=== PATIENT | male | born 1945 | race Caucasian/White ===

== ENCOUNTER 2017-09-15 17:42 | Inpatient (IN) | payer MEDICARE ==
[~2017-09-15] VITALS: Ht 180.3 cm; Wt 88.0 kg
[~2017-09-15 17:42] MED LIST: CHOL100046 PO; CYAN1TAB41; DIGO125T PO; GABA-532 PO; LOSA25TA96 PO; POLY119P2 PO; SYN0.088T PO; VERA240T PO; WARF2TAB7 PO; WARF4TAB7 PO
[2017-09-15 18:12] LABS: BASOPHILS % (AUTO) 0.3 % (0-1); EOSINOPHILS # (AUTO) 0.3 X10'3 (0-0.9); EOSINOPHILS % (AUTO) 2.8 % (0-6); HEMATOCRIT 42.2 % (42.0-52.0); HEMOGLOBIN 14.1 g/dl (14.0-17.9); LYMPHOCYTES # (AUTO) 2.2 X10'3 (1.1-4.8); LYMPHOCYTES % (AUTO) 23.7 % (21-51); MEAN CORPUSCULAR HEMOGLOBIN 32.1 PG (27.0-31.0); MEAN CORPUSCULAR HGB CONC 33.4 % (33.0-36.5); MEAN CORPUSCULAR VOLUME 96.3 FL (78-98); MEAN PLATELET VOLUME 7.6 FL (7.4-10.4); MONOCYTES # (AUTO) 0.8 X10'3 (0-0.9); MONOCYTES % (AUTO) 8.8 % (2-12); NEUTROPHILS % (AUTO) 64.4 % (42-75); PLATELET COUNT 242 X10'3 (140-440); RED BLOOD COUNT 4.39 X10'6 (4.70-6.10); RED CELL DISTRIBUTION WIDTH 13.6 % (11.5-14.5); WHITE BLOOD COUNT 9.3 X10'3 (4.5-11.0)
[2017-09-15 18:28] LABS: ALANINE AMINOTRANSFERASE 29 U/L (12-78); ALBUMIN 3.3 G/DL (3.4-5.0); ALBUMIN/GLOBULIN RATIO 0.9 (1.1-1.5); ALKALINE PHOSPHATASE 92 IU/L (46-116); ANION GAP 7 (8-16); ASPARTATE AMINO TRANSFERASE 19 U/L (10-37); BILIRUBIN,TOTAL 0.5 MG/DL (0.1-1.0); BLOOD UREA NITROGEN 17 MG/DL (7-18); BUN/CREATININE RATIO 19.8 (5.4-32.0); CALCIUM 8.8 MG/DL (8.5-10.1); CHLORIDE 107 MMOL/L (99-107); CREATININE 0.86 MG/DL (0.60-1.10); GLUCOSE 99 MG/DL (70-104); MAGNESIUM 1.8 MG/DL (1.5-2.4); POTASSIUM 4.4 MMOL/L (3.5-5.1); SODIUM 143 MMOL/L (135-145); TOTAL CARBON DIOXIDE 29.1 MMOL/L (24-32); TOTAL PROTEIN 7.1 G/DL (6.4-8.2); eGFR 88 ML/MIN
[2017-09-15] MEDS ORDERED: VENL75CA55 PO (18:47)
[2017-09-15 19:00] LABS: INR 2.5 INR; PROTHROMBIN TIME 24.6 SECONDS (9.0-12.0)
[2017-09-15] MEDS ORDERED: phytonadione inj. 5 MG in normal saline 100ml IV soln 99.5 ML IV ONE ×2 (19:15→19:45)
[2017-09-15] MEDS ORDERED: LORazepam 2 mg/ml vial IV ONE (20:05)
[2017-09-15] MEDS ORDERED: temazepam 15mg capsule PO PRN (21:00)
[2017-09-15] MEDS ORDERED: acetaminophen 325mg tablet PO PRN (22:00)
[2017-09-15] MEDS ORDERED: acetaminophen 650mg rectal suppository RC PRN (22:00)
[2017-09-15] MEDS ORDERED: mag hydrox/Alum hydrox/simeth 30ml oral suspension PO PRN (22:00)
[2017-09-15] MEDS ORDERED: bisacodyl 10mg suppository rectal RC PRN (22:00)
[2017-09-15] MEDS ORDERED: magnesium hydroxide 30ml (MOM) UD suspension PO PRN (22:00)
[2017-09-15] MEDS ORDERED: diphenhydrAMINE 50 mg/ml inj IV PRN (22:00)
[2017-09-15] MEDS ORDERED: HYDROcodone/acetaminophen 5mg/325mg tablet PO PRN (22:00)
[2017-09-15] MEDS ORDERED: diphenhydrAMINE 25mg capsule PO PRN (22:00)
[2017-09-15] MEDS ORDERED: ondansetron/PF 4mg/2ml inj IV PRN (22:00)
[2017-09-15] MEDS ORDERED: metoclopramide 5 mg/ml inj IV PRN (22:00)
[2017-09-15] MEDS ORDERED: HYDROmorphone 1 mg/ml syringe IV PRN ×2 (22:00)
[2017-09-15] MEDS: HYDROcodone/acetaminophen 10/325mg tab PO PRN (22:27)
[2017-09-15] MEDS ORDERED: fentaNYL/PF 50MCG/1 ML 2ML syringe IV PRN (22:30)
[2017-09-15] MEDS: pantoprazole 40 MG vial IV SCH (22:40)
[2017-09-15 23:30] VITALS: BP 130/84
[2017-09-15] MEDS: normal saline 1000ml 1,000 ML IV SCH (23:41)
[2017-09-15] MEDS ORDERED: HYDROmorphone inj. 0.5 MG/0.5 ML DISP.SYRIN IV PRN (23:55)
[2017-09-16] VITALS (13 sets, daily range): BP systolic 109–157; BP diastolic 67–86
[2017-09-16] MEDS: HYDROmorphone inj. 0.5 MG/0.5 ML DISP.SYRIN IV PRN ×5 (00:04→19:10)
[2017-09-16 07:07] LABS: BASOPHILS % (AUTO) 0.4 % (0-1); EOSINOPHILS # (AUTO) 0.2 X10'3 (0-0.9); EOSINOPHILS % (AUTO) 2.3 % (0-6); HEMATOCRIT 39.4 % (42.0-52.0); HEMOGLOBIN 13.2 g/dl (14.0-17.9); LYMPHOCYTES # (AUTO) 2.3 X10'3 (1.1-4.8); LYMPHOCYTES % (AUTO) 21.8 % (21-51); MEAN CORPUSCULAR HEMOGLOBIN 31.9 PG (27.0-31.0); MEAN CORPUSCULAR HGB CONC 33.6 % (33.0-36.5); MEAN PLATELET VOLUME 7.7 FL (7.4-10.4); MONOCYTES # (AUTO) 1.1 X10'3 (0-0.9); MONOCYTES % (AUTO) 10.4 % (2-12); NEUTROPHILS # (AUTO) 6.8 X10'3 (1.8-7.7); NEUTROPHILS % (AUTO) 65.1 % (42-75); PLATELET COUNT 220 X10'3 (140-440); RED BLOOD COUNT 4.15 X10'6 (4.70-6.10); RED CELL DISTRIBUTION WIDTH 14.1 % (11.5-14.5); WHITE BLOOD COUNT 10.4 X10'3 (4.5-11.0)
[2017-09-16 07:17] LABS: INR 1.3 INR; PARTIAL THROMBOPLASTIN TIME 33 SECONDS (22-32); PROTHROMBIN TIME 13.4 SECONDS (9.0-12.0)
[2017-09-16 07:25] LABS: ALANINE AMINOTRANSFERASE 32 U/L (12-78); ALBUMIN/GLOBULIN RATIO 0.9 (1.1-1.5); ALKALINE PHOSPHATASE 74 IU/L (46-116); ANION GAP 7 (8-16); ASPARTATE AMINO TRANSFERASE 18 U/L (10-37); BILIRUBIN,TOTAL 0.7 MG/DL (0.1-1.0); BLOOD UREA NITROGEN 15 MG/DL (7-18); BUN/CREATININE RATIO 19.5 (5.4-32.0); CALCIUM 8.2 MG/DL (8.5-10.1); CHLORIDE 108 MMOL/L (99-107); CREATININE 0.77 MG/DL (0.60-1.10); GLUCOSE 98 MG/DL (70-104); POTASSIUM 4.1 MMOL/L (3.5-5.1); SODIUM 142 MMOL/L (135-145); TOTAL CARBON DIOXIDE 27.1 MMOL/L (24-32); TOTAL PROTEIN 6.5 G/DL (6.4-8.2); eGFR > 90 ML/MIN
[2017-09-16] MEDS ORDERED: CYCL-1 PO (07:33)
[2017-09-16] MEDS: docusate sod 100mg capsule PO SCH ×2 (07:41→20:00)
[2017-09-16] MEDS: levoTHYROXINE 88mcg tablet PO SCH (07:51)
[2017-09-16] MEDS: losartan 50mg tablet PO SCH (07:51)
[2017-09-16] MEDS: pantoprazole 40 MG vial IV SCH (07:51)
[2017-09-16] MEDS: venlafaxine XR 75mg capsule (Q24H) PO SCH (07:51)
[2017-09-16] MEDS: digoxin 125mcg (0.125mg) tablet PO SCH (07:51)
[2017-09-16] MEDS: verapamil SR 120mg (sust. release) tab PO SCH ×2 (07:52→20:00)
[2017-09-16] MEDS: HYDROcodone/acetaminophen 10/325mg tab PO PRN ×3 (07:58→17:30)
[2017-09-16] MEDS ORDERED: benzocaine/menthol oral lozeng 1 EACH BOX MM PRN (08:05)
[2017-09-16] MEDS ORDERED: clindamycin-Cleocin 900mg/D5W 50 ML IV ONE (17:00)
[2017-09-16] MEDS ORDERED: sevoflurane 250ml liquid IH ONE (20:04)
[2017-09-16] MEDS ORDERED: fentaNYL/PF 50MCG/1 ML 2ML syringe ONE (20:09)
[2017-09-16] MEDS ORDERED: propofol inj 20 ML IV ONE (20:09)
[2017-09-16] MEDS ORDERED: ringers solution, lacted 1,000 ML IV SCH (21:26)
[2017-09-16] MEDS ORDERED: proCHLORperazine 10 MG/2 ml inj IV PRN (21:30)
[2017-09-16] MEDS ORDERED: ondansetron/PF 4mg/2ml inj IV PRN (21:30)
[2017-09-16] MEDS ORDERED: meperidine/PF 25mg/ml syringe IV PRN ×3 (21:30)
[2017-09-16] MEDS ORDERED: phenylephrine 10mg/ml inj IV ONE (21:52)
[2017-09-16] MEDS: normal saline 1000ml 1,000 ML IV SCH (23:59)
[2017-09-16] MEDS: clindamycin-Cleocin 900mg/D5W 50 ML IV SCH (23:59)
[2017-09-17] VITALS (31 sets, daily range): BP systolic 109–166; BP diastolic 53–91
[2017-09-17 06:35] LABS: BASOPHILS % (AUTO) 0.3 % (0-1); EOSINOPHILS # (AUTO) 0.4 X10'3 (0-0.9); EOSINOPHILS % (AUTO) 3.5 % (0-6); HEMATOCRIT 36.3 % (42.0-52.0); HEMOGLOBIN 12.3 g/dl (14.0-17.9); LYMPHOCYTES # (AUTO) 1.2 X10'3 (1.1-4.8); LYMPHOCYTES % (AUTO) 10.6 % (21-51); MEAN CORPUSCULAR HEMOGLOBIN 32.4 PG (27.0-31.0); MEAN CORPUSCULAR HGB CONC 33.8 % (33.0-36.5); MEAN CORPUSCULAR VOLUME 95.8 FL (78-98); MEAN PLATELET VOLUME 7.5 FL (7.4-10.4); MONOCYTES % (AUTO) 8.8 % (2-12); NEUTROPHILS # (AUTO) 8.8 X10'3 (1.8-7.7); NEUTROPHILS % (AUTO) 76.8 % (42-75); PLATELET COUNT 198 X10'3 (140-440); RED BLOOD COUNT 3.79 X10'6 (4.70-6.10); RED CELL DISTRIBUTION WIDTH 13.7 % (11.5-14.5); WHITE BLOOD COUNT 11.5 X10'3 (4.5-11.0)
[2017-09-17 06:57] LABS: ALANINE AMINOTRANSFERASE 29 U/L (12-78); ALBUMIN 2.9 G/DL (3.4-5.0); ALBUMIN/GLOBULIN RATIO 0.8 (1.1-1.5); ALKALINE PHOSPHATASE 67 IU/L (46-116); ANION GAP 7 (8-16); ASPARTATE AMINO TRANSFERASE 25 U/L (10-37); BLOOD UREA NITROGEN 12 MG/DL (7-18); BUN/CREATININE RATIO 15.2 (5.4-32.0); CALCIUM 8.3 MG/DL (8.5-10.1); CHLORIDE 105 MMOL/L (99-107); CREATININE 0.79 MG/DL (0.60-1.10); GLUCOSE 92 MG/DL (70-104); POTASSIUM 4.2 MMOL/L (3.5-5.1); SODIUM 140 MMOL/L (135-145); TOTAL CARBON DIOXIDE 28.5 MMOL/L (24-32); TOTAL PROTEIN 6.4 G/DL (6.4-8.2); eGFR > 90 ML/MIN
[2017-09-17] MEDS: levoTHYROXINE 88mcg tablet PO SCH (07:00)
[2017-09-17] MEDS: clindamycin-Cleocin 900mg/D5W 50 ML IV SCH ×3 (07:28→23:46)
[2017-09-17] MEDS: pantoprazole 40 MG vial IV SCH (07:32)
[2017-09-17] MEDS: venlafaxine XR 75mg capsule (Q24H) PO SCH (07:33)
[2017-09-17] MEDS: fluticasone nasal spray 16GM bottle NS SCH (07:33)
[2017-09-17] MEDS: verapamil SR 120mg (sust. release) tab PO SCH ×2 (07:33→18:51)
[2017-09-17] MEDS: docusate sod 100mg capsule PO SCH ×2 (07:33→19:51)
[2017-09-17] MEDS: losartan 50mg tablet PO SCH (07:34)
[2017-09-17] MEDS: digoxin 125mcg (0.125mg) tablet PO SCH ×2 (07:34→17:27)
[2017-09-17] MEDS ORDERED: propofol inj 20 ML IV ONE (07:44)
[2017-09-17] MEDS ORDERED: fentaNYL/PF 50MCG/1 ML 2ML syringe ONE (07:44)
[2017-09-17] MEDS ORDERED: ePHEDrine 50MG/ML INJ. ONE (07:57)
[2017-09-17] MEDS ORDERED: non-formulary drug (Warfarin Sodium 1 TABLET) PO SCH (08:55)
[2017-09-17] MEDS: normal saline 1000ml 1,000 ML IV SCH (10:28)
[2017-09-17] MEDS: acetaminophen 325mg tablet PO PRN (17:50)
[2017-09-17] MEDS ORDERED: diltiazem 5mg/ml 5ml inj. IV ONE (22:15)
[2017-09-18 02:00] VITALS: BP 108/63
[2017-09-18] MEDS: normal saline 1000ml 1,000 ML IV SCH ×2 (04:09→16:25)
[2017-09-18] MEDS: acetaminophen 325mg tablet PO PRN (05:25)
[2017-09-18 06:00] VITALS: BP 105/56
[2017-09-18 06:38] LABS: BASOPHILS % (AUTO) 0.1 % (0-1); EOSINOPHILS # (AUTO) 0.3 X10'3 (0-0.9); EOSINOPHILS % (AUTO) 2.9 % (0-6); HEMATOCRIT 32.7 % (42.0-52.0); HEMOGLOBIN 10.8 g/dl (14.0-17.9); LYMPHOCYTES # (AUTO) 1.2 X10'3 (1.1-4.8); LYMPHOCYTES % (AUTO) 13.9 % (21-51); MEAN CORPUSCULAR HEMOGLOBIN 31.4 PG (27.0-31.0); MEAN CORPUSCULAR VOLUME 95.2 FL (78-98); MEAN PLATELET VOLUME 7.6 FL (7.4-10.4); MONOCYTES # (AUTO) 1.1 X10'3 (0-0.9); MONOCYTES % (AUTO) 13.4 % (2-12); NEUTROPHILS % (AUTO) 69.7 % (42-75); PLATELET COUNT 172 X10'3 (140-440); RED BLOOD COUNT 3.44 X10'6 (4.70-6.10); RED CELL DISTRIBUTION WIDTH 14.2 % (11.5-14.5); WHITE BLOOD COUNT 8.6 X10'3 (4.5-11.0)
[2017-09-18 06:44] LABS: INR 1.1 INR; PROTHROMBIN TIME 11.1 SECONDS (9.0-12.0)
[2017-09-18 06:55] LABS: ALANINE AMINOTRANSFERASE 20 U/L (12-78); ALBUMIN 2.5 G/DL (3.4-5.0); ALBUMIN/GLOBULIN RATIO 0.7 (1.1-1.5); ALKALINE PHOSPHATASE 60 IU/L (46-116); ANION GAP 9 (8-16); ASPARTATE AMINO TRANSFERASE 19 U/L (10-37); BILIRUBIN,TOTAL 1.1 MG/DL (0.1-1.0); BLOOD UREA NITROGEN 12 MG/DL (7-18); BUN/CREATININE RATIO 16.9 (5.4-32.0); CALCIUM 7.8 MG/DL (8.5-10.1); CHLORIDE 106 MMOL/L (99-107); CREATININE 0.71 MG/DL (0.60-1.10); GLUCOSE 106 MG/DL (70-104); SODIUM 140 MMOL/L (135-145); TOTAL CARBON DIOXIDE 25.4 MMOL/L (24-32); TOTAL PROTEIN 6.1 G/DL (6.4-8.2); eGFR > 90 ML/MIN
[2017-09-18] MEDS: losartan 50mg tablet PO SCH (07:20)
[2017-09-18] MEDS: pantoprazole 40mg Tablet.DR PO SCH (07:32)
[2017-09-18] MEDS: venlafaxine XR 75mg capsule (Q24H) PO SCH (07:32)
[2017-09-18] MEDS: docusate sod 100mg capsule PO SCH ×2 (07:33→20:45)
[2017-09-18] MEDS: verapamil SR 120mg (sust. release) tab PO SCH ×2 (07:34→20:45)
[2017-09-18] MEDS: digoxin 125mcg (0.125mg) tablet PO SCH (07:34)
[2017-09-18] MEDS: levoTHYROXINE 88mcg tablet PO SCH (07:35)
[2017-09-18] MEDS: fluticasone nasal spray 16GM bottle NS SCH (07:36)
[2017-09-18 10:00] VITALS: BP 118/60
[2017-09-18] MEDS: HYDROcodone/acetaminophen 10/325mg tab PO PRN ×2 (12:14→16:24)
[2017-09-18] MEDS ORDERED: lactulose 20gm/30ml cup PO PRN (13:25)
[2017-09-18] MEDS ORDERED: lactulose 20gm/30ml cup PO ONE (13:25)
[2017-09-18 13:50] VITALS: BP 111/56
[2017-09-18 18:00] VITALS: BP 148/75
[2017-09-18] MEDS ORDERED: oxyCODONE/APAP 5-325mg tablet PO PRN (19:35)
[2017-09-18] MEDS: oxyCODONE/APAP 10/325mg tablet PO PRN (20:45)
[2017-09-18] MEDS ORDERED: warfarin 4mg tablet PO ONE ×2 (21:00)
[2017-09-18 22:00] VITALS: BP 128/83
[2017-09-19 02:00] VITALS: BP 127/75
[2017-09-19 05:24] LABS: BASOPHILS % (AUTO) 0.1 % (0-1); EOSINOPHILS # (AUTO) 0.3 X10'3 (0-0.9); EOSINOPHILS % (AUTO) 1.9 % (0-6); HEMATOCRIT 33.9 % (42.0-52.0); HEMOGLOBIN 11.4 g/dl (14.0-17.9); LYMPHOCYTES # (AUTO) 0.5 X10'3 (1.1-4.8); LYMPHOCYTES % (AUTO) 3.8 % (21-51); MEAN CORPUSCULAR HEMOGLOBIN 32.1 PG (27.0-31.0); MEAN CORPUSCULAR HGB CONC 33.5 % (33.0-36.5); MEAN CORPUSCULAR VOLUME 95.8 FL (78-98); MEAN PLATELET VOLUME 7.8 FL (7.4-10.4); MONOCYTES # (AUTO) 0.9 X10'3 (0-0.9); MONOCYTES % (AUTO) 6.3 % (2-12); NEUTROPHILS # (AUTO) 12.5 X10'3 (1.8-7.7); NEUTROPHILS % (AUTO) 87.9 % (42-75); PLATELET COUNT 199 X10'3 (140-440); RED BLOOD COUNT 3.54 X10'6 (4.70-6.10); WHITE BLOOD COUNT 14.3 X10'3 (4.5-11.0)
[2017-09-19 05:37] LABS: PROTHROMBIN TIME 10.7 SECONDS (9.0-12.0)
[2017-09-19 06:00] VITALS: BP 127/70
[2017-09-19 06:00] LABS: ALANINE AMINOTRANSFERASE 21 U/L (12-78); ALBUMIN 2.6 G/DL (3.4-5.0); ALBUMIN/GLOBULIN RATIO 0.6 (1.1-1.5); ALKALINE PHOSPHATASE 65 IU/L (46-116); ANION GAP 11 (8-16); ASPARTATE AMINO TRANSFERASE 19 U/L (10-37); BILIRUBIN,TOTAL 1.1 MG/DL (0.1-1.0); BLOOD UREA NITROGEN 12 MG/DL (7-18); BUN/CREATININE RATIO 16.9 (5.4-32.0); CALCIUM 8.2 MG/DL (8.5-10.1); CHLORIDE 107 MMOL/L (99-107); CREATININE 0.71 MG/DL (0.60-1.10); GLUCOSE 107 MG/DL (70-104); POTASSIUM 3.2 MMOL/L (3.5-5.1); SODIUM 142 MMOL/L (135-145); TOTAL CARBON DIOXIDE 23.9 MMOL/L (24-32); TOTAL PROTEIN 6.7 G/DL (6.4-8.2); eGFR > 90 ML/MIN
[2017-09-19] MEDS ORDERED: mineral oil 133ml enema RC PRN (06:05)
[2017-09-19] MEDS ORDERED: digoxin 250mcg/ml 2ml ampule IV ONE (07:20)
[2017-09-19] MEDS: levoTHYROXINE 88mcg tablet PO SCH (07:58)
[2017-09-19] MEDS: venlafaxine XR 75mg capsule (Q24H) PO SCH (07:58)
[2017-09-19] MEDS: docusate sod 100mg capsule PO SCH ×2 (07:58→20:23)
[2017-09-19] MEDS: digoxin 125mcg (0.125mg) tablet PO SCH (07:58)
[2017-09-19] MEDS: pantoprazole 40mg Tablet.DR PO SCH (07:58)
[2017-09-19] MEDS: losartan 50mg tablet PO SCH (07:58)
[2017-09-19] MEDS: verapamil SR 120mg (sust. release) tab PO SCH ×2 (07:58→20:23)
[2017-09-19] MEDS: sennosides/docusate sodium tablet PO SCH ×2 (07:58→20:23)
[2017-09-19] MEDS: fluticasone nasal spray 16GM bottle NS SCH (08:00)
[2017-09-19] MEDS: normal saline 1000ml 1,000 ML IV SCH ×2 (08:09→20:23)
[2017-09-19] MEDS ORDERED: potassium Cl 40MEQ/NS 500ml 500 ML IV PRN ×2 (08:45)
[2017-09-19] MEDS ORDERED: potassium Cl 20 mEq SR tablet PO PRN (08:45)
[2017-09-19] MEDS ORDERED: magnesium 4gm in 100ml NS 100 ML IV PRN (08:45)
[2017-09-19] MEDS ORDERED: magnesium 2GM in 50ml NS 50 ML IV PRN (08:45)
[2017-09-19] MEDS: potassium Cl 20 mEq SR tablet PO PRN ×2 (09:39→16:31)
[2017-09-19 11:00] VITALS: BP 140/86
[2017-09-19] MEDS: oxyCODONE/APAP 10/325mg tablet PO PRN (17:40)
[2017-09-19 18:00] VITALS: BP 135/68
[2017-09-19] MEDS ORDERED: polyethylene glycol 3350 17gm powd pack PO SCH (21:00)
[2017-09-19] MEDS ORDERED: warfarin 3mg tablet PO ONE (21:00)
[2017-09-19 22:00] VITALS: BP 124/80
[2017-09-20] MEDS: normal saline 1000ml 1,000 ML IV SCH (05:42)
[2017-09-20] MEDS: oxyCODONE/APAP 10/325mg tablet PO PRN (05:42)
[2017-09-20 06:00] VITALS: BP 122/69
[2017-09-20 07:02] LABS: BASOPHILS % (AUTO) 0.4 % (0-1); EOSINOPHILS # (AUTO) 0.5 X10'3 (0-0.9); EOSINOPHILS % (AUTO) 4.4 % (0-6); HEMATOCRIT 33.8 % (42.0-52.0); HEMOGLOBIN 11.5 g/dl (14.0-17.9); LYMPHOCYTES % (AUTO) 16.6 % (21-51); MEAN CORPUSCULAR HEMOGLOBIN 32.4 PG (27.0-31.0); MEAN CORPUSCULAR VOLUME 95.2 FL (78-98); MEAN PLATELET VOLUME 8.1 FL (7.4-10.4); MONOCYTES % (AUTO) 8.8 % (2-12); NEUTROPHILS # (AUTO) 8.2 X10'3 (1.8-7.7); NEUTROPHILS % (AUTO) 69.8 % (42-75); PLATELET COUNT 214 X10'3 (140-440); RED BLOOD COUNT 3.54 X10'6 (4.70-6.10); RED CELL DISTRIBUTION WIDTH 13.8 % (11.5-14.5); WHITE BLOOD COUNT 11.8 X10'3 (4.5-11.0)
[2017-09-20 07:11] LABS: PROTHROMBIN TIME 10.8 SECONDS (9.0-12.0)
[2017-09-20] MEDS: pantoprazole 40mg Tablet.DR PO SCH (07:32)
[2017-09-20] MEDS: venlafaxine XR 75mg capsule (Q24H) PO SCH (07:32)
[2017-09-20] MEDS: levoTHYROXINE 88mcg tablet PO SCH (07:32)
[2017-09-20] MEDS: verapamil SR 120mg (sust. release) tab PO SCH (07:32)
[2017-09-20] MEDS: sennosides/docusate sodium tablet PO SCH (07:32)
[2017-09-20] MEDS: losartan 50mg tablet PO SCH (07:33)
[2017-09-20] MEDS: docusate sod 100mg capsule PO SCH (07:33)
[2017-09-20 07:59] LABS: ALANINE AMINOTRANSFERASE 28 U/L (12-78); ALBUMIN 2.6 G/DL (3.4-5.0); ALBUMIN/GLOBULIN RATIO 0.6 (1.1-1.5); ALKALINE PHOSPHATASE 65 IU/L (46-116); ANION GAP 10 (8-16); ASPARTATE AMINO TRANSFERASE 24 U/L (10-37); BILIRUBIN,TOTAL 1.2 MG/DL (0.1-1.0); BLOOD UREA NITROGEN 13 MG/DL (7-18); BUN/CREATININE RATIO 16.7 (5.4-32.0); CALCIUM 8.6 MG/DL (8.5-10.1); CHLORIDE 106 MMOL/L (99-107); CREATININE 0.78 MG/DL (0.60-1.10); GLUCOSE 98 MG/DL (70-104); SODIUM 141 MMOL/L (135-145); TOTAL CARBON DIOXIDE 24.8 MMOL/L (24-32); eGFR > 90 ML/MIN
[2017-09-20] MEDS ORDERED: digoxin 125mcg (0.125mg) tablet PO SCH (08:00)
[2017-09-20] MEDS: fluticasone nasal spray 16GM bottle NS SCH (08:00)
[2017-09-20 10:34] VITALS: BP 128/72
[2017-09-20] MEDS ORDERED: DIGO125T5 PO (11:42)
[2017-09-20] MEDS ORDERED: warfarin 7.5mg tablet PO ONE (21:00)
== END 2017-09-20 16:30 | DRG 482 ==
LOC: ER 17:42 → ED HOLD 22:03 → ORTHO 4S 23:04 → PACU 09-16 19:19 → ORTHO 4S 09-16 22:44
PROVIDERS: ADMIT Family Medicine; ATTEND Family Medicine
PROC: 0QS706Z Reposition Left Upper Femur with Intramedullary Internal Fixation Device, Open Approach (ICD-10-PCS; principal; 2017-09-16 20:04)
PROC: 0QW704Z Revision of Internal Fixation Device in Left Upper Femur, Open Approach (ICD-10-PCS; 2017-09-17)
DX: S72.22XA Displaced subtrochanteric fracture of left femur, initial encounter for closed fracture (principal); I48.91 Unspecified atrial fibrillation; D64.9 Anemia, unspecified; M21.852 Other specified acquired deformities of left thigh; M54.9 Dorsalgia, unspecified; G89.29 Other chronic pain; E78.00 Pure hypercholesterolemia, unspecified; I10 Essential (primary) hypertension; E03.9 Hypothyroidism, unspecified; W18.39XA Other fall on same level, initial encounter; Z88.0 Allergy status to penicillin; Z88.2 Allergy status to sulfonamides; Z79.899 Other long term (current) drug therapy; Z79.01 Long term (current) use of anticoagulants; Z86.14 Personal history of Methicillin resistant Staphylococcus aureus infection; Y93.89 Activity, other specified; Y92.89 Other specified places as the place of occurrence of the external cause; Y99.8 Other external cause status
CPT/HCPCS: 27495; 36415; 71010; 71045; 73502; 73552; 76000; 76001; 80053; 80162; 83605; 83735; 83880; 84145; 84443; 85025; 85610; 85730; 87040; 87070; 93005; 93308; 96374; 96375; 97110; 97116; 97162; 97530; 99285; A4315; A6222; A6449; A7000; C1713; C9113; J1160; J1170; J2060; J2175; J2370; J2704; J3010; J3370; J3430; J3490; J7030; J7120

== ENCOUNTER 2018-01-04 10:19 | Inpatient (IN) | payer MEDICARE ==
[~2018-01-04] VITALS: Ht 175.3 cm; Wt 86.3 kg
[~2018-01-04 10:19] MED LIST changes: +CIPR-230 PO; +CYCL-1 PO; -DIGO125T PO; +DIGO125T5 PO; -GABA-532 PO; -POLY119P2 PO; +VENL75CA55 PO; +WARF-65 PO; -WARF2TAB7 PO; +WARF4TAB69 PO; -WARF4TAB7 PO
[2018-01-04] MEDS ORDERED: diltiazem 5mg/ml 5ml inj. IV ONE (10:45)
[2018-01-04 10:55] LABS: BASOPHILS % (AUTO) 0.3 % (0-1); EOSINOPHILS # (AUTO) 0.2 X10'3 (0-0.9); EOSINOPHILS % (AUTO) 2.5 % (0-6); HEMATOCRIT 40.1 % (42.0-52.0); HEMOGLOBIN 13.8 g/dl (14.0-17.9); LYMPHOCYTES # (AUTO) 1.9 X10'3 (1.1-4.8); LYMPHOCYTES % (AUTO) 21.9 % (21-51); MEAN CORPUSCULAR HEMOGLOBIN 30.8 PG (27.0-31.0); MEAN CORPUSCULAR HGB CONC 34.4 % (33.0-36.5); MEAN CORPUSCULAR VOLUME 89.6 FL (78-98); MEAN PLATELET VOLUME 7.7 FL (7.4-10.4); MONOCYTES # (AUTO) 0.8 X10'3 (0-0.9); MONOCYTES % (AUTO) 9.5 % (2-12); NEUTROPHILS # (AUTO) 5.7 X10'3 (1.8-7.7); NEUTROPHILS % (AUTO) 65.8 % (42-75); PLATELET COUNT 260 X10'3 (140-440); RED BLOOD COUNT 4.48 X10'6 (4.70-6.10); RED CELL DISTRIBUTION WIDTH 16.9 % (11.5-14.5); WHITE BLOOD COUNT 8.7 X10'3 (4.5-11.0)
[2018-01-04 11:07] LABS: PARTIAL THROMBOPLASTIN TIME 38 SECONDS (22-32); PROTHROMBIN TIME 20.4 SECONDS (9.0-12.0)
[2018-01-04 11:20] LABS: ALANINE AMINOTRANSFERASE 22 U/L (12-78); ALBUMIN 3.7 G/DL (3.4-5.0); ALBUMIN/GLOBULIN RATIO 0.8 (1.1-1.5); ALKALINE PHOSPHATASE 89 IU/L (46-116); ANION GAP 13 (8-16); ASPARTATE AMINO TRANSFERASE 19 U/L (10-37); BILIRUBIN,TOTAL 0.6 MG/DL (0.1-1.0); BLOOD UREA NITROGEN 18 MG/DL (7-18); BUN/CREATININE RATIO 16.8 (5.4-32.0); CALCIUM 9.4 MG/DL (8.5-10.1); CHLORIDE 103 MMOL/L (99-107); CREATININE 1.07 MG/DL (0.60-1.10); GLUCOSE 112 MG/DL (70-104); POTASSIUM 4.4 MMOL/L (3.5-5.1); SODIUM 141 MMOL/L (135-145); TOTAL PROTEIN 8.5 G/DL (6.4-8.2); eGFR 68 ML/MIN
[2018-01-04] MEDS ORDERED: verapamil 2.5 mg/ml inj IV ONE (11:20)
[2018-01-04] MEDS ORDERED: normal saline 1000ML IV soln IV ONE (11:30)
[2018-01-04] MEDS ORDERED: levoFLOXACIN-Levaquin 750MG/D5 150 ML IV ONE (11:30)
[2018-01-04] MEDS ORDERED: CefTRIAXone 2gm/D5W 50ml 50 ML IV ONE (11:30)
[2018-01-04 11:59] LABS: CLARITY,URINE SLIGHTLY CLOUDY (Clear); COLOR,URINE YELLOW (Yellow); GLUCOSE, URINE NEGATIVE (Neg); KETONES,URINE NEGATIVE (Neg); LEUKOCYTE ESTERASE ,URINE SMALL (Neg); NITRITES, URINE POSITIVE (Neg); OCCULT BLOOD,URINE NEGATIVE (Neg); PH,URINE 5.5 (4.8-8.0); PROTEIN,URINE NEGATIVE (Neg); UROBILINOGEN,URINE 0.2 E.U/dL (0.2-1.0)
[2018-01-04 12:00] LABS: UA COLLECTION TYPE URINAL
[2018-01-04 12:05] LABS: BACTERIA,URINE 2+ /HPF (Neg); HYALINE CASTS 0-3 /LPF (NEGATIVE); SQUAMOUS EPITHELIAL CELL,UR MODERATE /LPF (FEW)
[2018-01-04 12:06] LABS: TRANSITIONAL EPI CELLS,URINE MODERATE /HPF; WBC,URINE 30-50 /HPF (0-4)
[2018-01-04] MEDS: normal saline 1000ml 1,000 ML IV SCH ×5 (12:35→23:10)
[2018-01-04] MEDS ORDERED: digoxin 250mcg (0.25mg) tablet PO ONE (13:30)
[2018-01-04] MEDS ORDERED: magnesium hydroxide 30ml (MOM) UD suspension PO PRN (13:30)
[2018-01-04] MEDS ORDERED: ondansetron/PF 4mg/2ml inj IV PRN (13:30)
[2018-01-04] MEDS ORDERED: mag hydrox/Alum hydrox/simeth 30ml oral suspension PO PRN (13:30)
[2018-01-04 16:00] VITALS: BP 150/81
[2018-01-04 18:30] VITALS: BP 132/67
[2018-01-04] MEDS ORDERED: digoxin 250mcg/ml 2ml ampule IV ONE (21:15)
[2018-01-04] MEDS: verapamil SR 120mg (sust. release) tab PO SCH (21:25)
[2018-01-04] MEDS: carvedilol 6.25mg tablet PO SCH (21:25)
[2018-01-04 22:00] VITALS: BP 133/73
[2018-01-04] MEDS: acetaminophen 325mg tablet PO PRN (23:52)
[2018-01-05 02:00] VITALS: BP 131/75
[2018-01-05 05:35] LABS: BASOPHILS % (AUTO) 0.4 % (0-1); EOSINOPHILS # (AUTO) 0.4 X10'3 (0-0.9); HEMATOCRIT 37.2 % (42.0-52.0); HEMOGLOBIN 12.8 g/dl (14.0-17.9); LYMPHOCYTES # (AUTO) 2.5 X10'3 (1.1-4.8); LYMPHOCYTES % (AUTO) 32.2 % (21-51); MEAN CORPUSCULAR HEMOGLOBIN 31.1 PG (27.0-31.0); MEAN CORPUSCULAR HGB CONC 34.4 % (33.0-36.5); MEAN CORPUSCULAR VOLUME 90.5 FL (78-98); MONOCYTES # (AUTO) 0.9 X10'3 (0-0.9); MONOCYTES % (AUTO) 11.8 % (2-12); NEUTROPHILS # (AUTO) 3.9 X10'3 (1.8-7.7); NEUTROPHILS % (AUTO) 50.6 % (42-75); PLATELET COUNT 200 X10'3 (140-440); RED BLOOD COUNT 4.11 X10'6 (4.70-6.10); RED CELL DISTRIBUTION WIDTH 16.8 % (11.5-14.5); WHITE BLOOD COUNT 7.7 X10'3 (4.5-11.0)
[2018-01-05 05:58] LABS: INR 2.1 INR; PROTHROMBIN TIME 20.9 SECONDS (9.0-12.0)
[2018-01-05 06:00] VITALS: BP 136/77
[2018-01-05 06:30] LABS: ALANINE AMINOTRANSFERASE 19 U/L (12-78); ALBUMIN/GLOBULIN RATIO 0.8 (1.1-1.5); ALKALINE PHOSPHATASE 72 IU/L (46-116); ANION GAP 11 (8-16); ASPARTATE AMINO TRANSFERASE 19 U/L (10-37); BILIRUBIN,TOTAL 0.6 MG/DL (0.1-1.0); BLOOD UREA NITROGEN 12 MG/DL (7-18); CALCIUM 8.5 MG/DL (8.5-10.1); CHLORIDE 107 MMOL/L (99-107); CREATININE 0.86 MG/DL (0.60-1.10); GLUCOSE 82 MG/DL (70-104); SODIUM 142 MMOL/L (135-145); TOTAL CARBON DIOXIDE 24.3 MMOL/L (24-32); eGFR 88 ML/MIN
[2018-01-05] MEDS ORDERED: losartan 25mg tablet PO SCH (08:00)
[2018-01-05] MEDS: normal saline 1000ml 1,000 ML IV SCH ×3 (08:09→16:02)
[2018-01-05] MEDS: cyclobenzaprine 10mg tablet PO SCH (08:10)
[2018-01-05] MEDS: verapamil SR 120mg (sust. release) tab PO SCH ×2 (08:10→19:43)
[2018-01-05] MEDS: levoTHYROXINE 88mcg tablet PO SCH (08:12)
[2018-01-05] MEDS: venlafaxine XR 75mg capsule (Q24H) PO SCH (08:12)
[2018-01-05] MEDS: vitamin D (cholecalciferol) 1,000 unit tablet PO SCH (08:13)
[2018-01-05] MEDS: losartan 50mg tablet PO SCH (08:13)
[2018-01-05] MEDS: carvedilol 6.25mg tablet PO SCH ×2 (08:13→19:42)
[2018-01-05] MEDS: CefTRIAXone 2gm/D5W 50ml 50 ML IV SCH (08:14)
[2018-01-05 11:00] VITALS: BP 135/68
[2018-01-05 15:00] VITALS: BP 113/61
[2018-01-05 18:00] VITALS: BP 133/68
[2018-01-05] MEDS: lactobacillus rhamnosus 10,000 MMU CELLS/CAPSULE PO SCH (19:42)
[2018-01-06 02:00] VITALS: BP 116/63
[2018-01-06 05:12] LABS: BASOPHILS % (AUTO) 0.4 % (0-1); EOSINOPHILS # (AUTO) 0.6 X10'3 (0-0.9); EOSINOPHILS % (AUTO) 5.7 % (0-6); HEMATOCRIT 37.7 % (42.0-52.0); HEMOGLOBIN 12.8 g/dl (14.0-17.9); LYMPHOCYTES # (AUTO) 2.7 X10'3 (1.1-4.8); LYMPHOCYTES % (AUTO) 27.7 % (21-51); MEAN CORPUSCULAR HEMOGLOBIN 30.8 PG (27.0-31.0); MEAN CORPUSCULAR VOLUME 90.6 FL (78-98); MEAN PLATELET VOLUME 7.9 FL (7.4-10.4); MONOCYTES # (AUTO) 1.1 X10'3 (0-0.9); MONOCYTES % (AUTO) 10.9 % (2-12); NEUTROPHILS # (AUTO) 5.5 X10'3 (1.8-7.7); NEUTROPHILS % (AUTO) 55.3 % (42-75); PLATELET COUNT 204 X10'3 (140-440); RED BLOOD COUNT 4.16 X10'6 (4.70-6.10); RED CELL DISTRIBUTION WIDTH 16.8 % (11.5-14.5); WHITE BLOOD COUNT 9.9 X10'3 (4.5-11.0)
[2018-01-06 05:31] LABS: ALANINE AMINOTRANSFERASE 18 U/L (12-78); ALBUMIN/GLOBULIN RATIO 0.8 (1.1-1.5); ALKALINE PHOSPHATASE 70 IU/L (46-116); ANION GAP 10 (8-16); ASPARTATE AMINO TRANSFERASE 14 U/L (10-37); BILIRUBIN,TOTAL 0.5 MG/DL (0.1-1.0); BLOOD UREA NITROGEN 16 MG/DL (7-18); BUN/CREATININE RATIO 21.6 (5.4-32.0); CALCIUM 8.2 MG/DL (8.5-10.1); CHLORIDE 106 MMOL/L (99-107); CREATININE 0.74 MG/DL (0.60-1.10); GLUCOSE 86 MG/DL (70-104); POTASSIUM 4.1 MMOL/L (3.5-5.1); SODIUM 140 MMOL/L (135-145); TOTAL CARBON DIOXIDE 24.4 MMOL/L (24-32); TOTAL PROTEIN 6.9 G/DL (6.4-8.2); eGFR > 90 ML/MIN
[2018-01-06 06:00] VITALS: BP 124/84
[2018-01-06] MEDS: normal saline 1000ml 1,000 ML IV SCH (07:59)
[2018-01-06] MEDS: CefTRIAXone 2gm/D5W 50ml 50 ML IV SCH (08:00)
[2018-01-06] MEDS: levoTHYROXINE 88mcg tablet PO SCH (08:04)
[2018-01-06] MEDS: vitamin D (cholecalciferol) 1,000 unit tablet PO SCH (08:04)
[2018-01-06] MEDS: lactobacillus rhamnosus 10,000 MMU CELLS/CAPSULE PO SCH ×2 (08:04→21:40)
[2018-01-06] MEDS: verapamil SR 120mg (sust. release) tab PO SCH ×2 (08:04→21:39)
[2018-01-06] MEDS: venlafaxine XR 75mg capsule (Q24H) PO SCH (08:04)
[2018-01-06] MEDS: losartan 50mg tablet PO SCH (08:05)
[2018-01-06] MEDS: carvedilol 6.25mg tablet PO SCH ×2 (08:05→21:40)
[2018-01-06] MEDS: cyclobenzaprine 10mg tablet PO SCH (08:05)
[2018-01-06 11:00] VITALS: BP 125/74
[2018-01-06] MEDS: acetaminophen 325mg tablet PO PRN (11:27)
[2018-01-06 15:00] VITALS: BP 118/68
[2018-01-06 18:00] VITALS: BP 128/72
[2018-01-06 22:00] VITALS: BP 116/66
[2018-01-07] VITALS (7 sets, daily range): BP systolic 99–126; BP diastolic 55–65
[2018-01-07] MEDS: acetaminophen 325mg tablet PO PRN ×2 (03:21→10:09)
[2018-01-07 05:26] LABS: BASOPHILS % (AUTO) 0.3 % (0-1); EOSINOPHILS # (AUTO) 0.6 X10'3 (0-0.9); EOSINOPHILS % (AUTO) 5.8 % (0-6); HEMATOCRIT 37.5 % (42.0-52.0); LYMPHOCYTES # (AUTO) 2.6 X10'3 (1.1-4.8); LYMPHOCYTES % (AUTO) 25.1 % (21-51); MEAN CORPUSCULAR HEMOGLOBIN 31.2 PG (27.0-31.0); MEAN CORPUSCULAR HGB CONC 34.8 % (33.0-36.5); MEAN CORPUSCULAR VOLUME 89.8 FL (78-98); MONOCYTES # (AUTO) 1.1 X10'3 (0-0.9); MONOCYTES % (AUTO) 10.6 % (2-12); NEUTROPHILS % (AUTO) 58.2 % (42-75); PLATELET COUNT 202 X10'3 (140-440); RED BLOOD COUNT 4.18 X10'6 (4.70-6.10); RED CELL DISTRIBUTION WIDTH 16.9 % (11.5-14.5); WHITE BLOOD COUNT 10.4 X10'3 (4.5-11.0)
[2018-01-07 05:52] LABS: ALANINE AMINOTRANSFERASE 16 U/L (12-78); ALBUMIN 3.1 G/DL (3.4-5.0); ALBUMIN/GLOBULIN RATIO 0.8 (1.1-1.5); ALKALINE PHOSPHATASE 79 IU/L (46-116); ANION GAP 11 (8-16); ASPARTATE AMINO TRANSFERASE 17 U/L (10-37); BILIRUBIN,TOTAL 0.6 MG/DL (0.1-1.0); BLOOD UREA NITROGEN 16 MG/DL (7-18); BUN/CREATININE RATIO 21.3 (5.4-32.0); CALCIUM 8.7 MG/DL (8.5-10.1); CHLORIDE 103 MMOL/L (99-107); CREATININE 0.75 MG/DL (0.60-1.10); GLUCOSE 88 MG/DL (70-104); POTASSIUM 4.1 MMOL/L (3.5-5.1); SODIUM 138 MMOL/L (135-145); TOTAL CARBON DIOXIDE 24.4 MMOL/L (24-32); TOTAL PROTEIN 7.2 G/DL (6.4-8.2); eGFR > 90 ML/MIN
[2018-01-07] MEDS: vitamin D (cholecalciferol) 1,000 unit tablet PO SCH (08:14)
[2018-01-07] MEDS: carvedilol 6.25mg tablet PO SCH ×2 (08:14→20:23)
[2018-01-07] MEDS: levoTHYROXINE 88mcg tablet PO SCH (08:14)
[2018-01-07] MEDS: cyclobenzaprine 10mg tablet PO SCH (08:15)
[2018-01-07] MEDS: losartan 50mg tablet PO SCH (08:15)
[2018-01-07] MEDS: venlafaxine XR 75mg capsule (Q24H) PO SCH (08:15)
[2018-01-07] MEDS: CefTRIAXone 2gm/D5W 50ml 50 ML IV SCH (08:16)
[2018-01-07] MEDS: verapamil SR 120mg (sust. release) tab PO SCH ×2 (08:16→20:23)
[2018-01-07] MEDS: lactobacillus rhamnosus 10,000 MMU CELLS/CAPSULE PO SCH ×2 (08:16→20:23)
[2018-01-07 18:18] LABS: INR 1.1 INR; PROTHROMBIN TIME 11.7 SECONDS (9.0-12.0)
[2018-01-07] MEDS: heparin, porcine 5000 units/ml vial SQ SCH (20:27)
[2018-01-07] MEDS ORDERED: warfarin 5mg tablet PO ONE (21:00)
[2018-01-08 04:35] VITALS: BP 96/63
[2018-01-08 05:53] LABS: BASOPHILS % (AUTO) 0.3 % (0-1); EOSINOPHILS # (AUTO) 0.6 X10'3 (0-0.9); EOSINOPHILS % (AUTO) 6.3 % (0-6); HEMATOCRIT 38.8 % (42.0-52.0); HEMOGLOBIN 13.3 g/dl (14.0-17.9); LYMPHOCYTES # (AUTO) 2.8 X10'3 (1.1-4.8); LYMPHOCYTES % (AUTO) 29.9 % (21-51); MEAN CORPUSCULAR HEMOGLOBIN 30.9 PG (27.0-31.0); MEAN CORPUSCULAR HGB CONC 34.2 % (33.0-36.5); MEAN CORPUSCULAR VOLUME 90.3 FL (78-98); MEAN PLATELET VOLUME 7.8 FL (7.4-10.4); MONOCYTES % (AUTO) 10.9 % (2-12); NEUTROPHILS % (AUTO) 52.6 % (42-75); PLATELET COUNT 221 X10'3 (140-440); RED BLOOD COUNT 4.29 X10'6 (4.70-6.10); RED CELL DISTRIBUTION WIDTH 16.8 % (11.5-14.5); WHITE BLOOD COUNT 9.5 X10'3 (4.5-11.0)
[2018-01-08 06:00] VITALS: BP 127/66
[2018-01-08 06:04] LABS: INR 1.1 INR
[2018-01-08 06:27] LABS: ALANINE AMINOTRANSFERASE 18 U/L (12-78); ALBUMIN 3.2 G/DL (3.4-5.0); ALBUMIN/GLOBULIN RATIO 0.7 (1.1-1.5); ALKALINE PHOSPHATASE 78 IU/L (46-116); ANION GAP 10 (8-16); ASPARTATE AMINO TRANSFERASE 18 U/L (10-37); BILIRUBIN,TOTAL 0.8 MG/DL (0.1-1.0); BLOOD UREA NITROGEN 19 MG/DL (7-18); BUN/CREATININE RATIO 24.4 (5.4-32.0); CHLORIDE 102 MMOL/L (99-107); CREATININE 0.78 MG/DL (0.60-1.10); GLUCOSE 88 MG/DL (70-104); POTASSIUM 4.2 MMOL/L (3.5-5.1); SODIUM 138 MMOL/L (135-145); TOTAL CARBON DIOXIDE 26.2 MMOL/L (24-32); TOTAL PROTEIN 7.5 G/DL (6.4-8.2); eGFR > 90 ML/MIN
[2018-01-08] MEDS: vitamin D (cholecalciferol) 1,000 unit tablet PO SCH (07:57)
[2018-01-08] MEDS: cyclobenzaprine 10mg tablet PO SCH (07:57)
[2018-01-08] MEDS: lactobacillus rhamnosus 10,000 MMU CELLS/CAPSULE PO SCH ×2 (07:57→21:20)
[2018-01-08] MEDS: verapamil SR 120mg (sust. release) tab PO SCH ×2 (07:57→21:19)
[2018-01-08] MEDS: carvedilol 6.25mg tablet PO SCH ×2 (07:58→21:20)
[2018-01-08] MEDS: heparin, porcine 5000 units/ml vial SQ SCH ×2 (07:58→21:21)
[2018-01-08] MEDS: levoTHYROXINE 100mcg tablet PO SCH (07:58)
[2018-01-08] MEDS: losartan 50mg tablet PO SCH (07:58)
[2018-01-08] MEDS: CefTRIAXone 2gm/D5W 50ml 50 ML IV SCH (07:58)
[2018-01-08] MEDS: venlafaxine XR 75mg capsule (Q24H) PO SCH (07:58)
[2018-01-08 11:00] VITALS: BP 101/68
[2018-01-08 15:00] VITALS: BP 97/54
[2018-01-08 18:00] VITALS: BP 107/63
[2018-01-08 18:27] LABS: INR 1.1 INR; PROTHROMBIN TIME 10.9 SECONDS (9.0-12.0)
[2018-01-08] MEDS ORDERED: warfarin 5mg tablet PO ONE (21:00)
[2018-01-08 22:00] VITALS: BP 118/58
[2018-01-09 02:00] VITALS: BP 91/41
[2018-01-09] MEDS: acetaminophen 325mg tablet PO PRN (02:24)
[2018-01-09 05:15] LABS: BASOPHILS % (AUTO) 0.4 % (0-1); EOSINOPHILS # (AUTO) 0.6 X10'3 (0-0.9); HEMOGLOBIN 12.6 g/dl (14.0-17.9); LYMPHOCYTES # (AUTO) 3.2 X10'3 (1.1-4.8); LYMPHOCYTES % (AUTO) 32.5 % (21-51); MEAN CORPUSCULAR HEMOGLOBIN 30.8 PG (27.0-31.0); MEAN CORPUSCULAR VOLUME 90.6 FL (78-98); MEAN PLATELET VOLUME 8.4 FL (7.4-10.4); MONOCYTES # (AUTO) 1.1 X10'3 (0-0.9); MONOCYTES % (AUTO) 10.9 % (2-12); NEUTROPHILS # (AUTO) 4.9 X10'3 (1.8-7.7); NEUTROPHILS % (AUTO) 50.2 % (42-75); PLATELET COUNT 207 X10'3 (140-440); RED BLOOD COUNT 4.08 X10'6 (4.70-6.10); RED CELL DISTRIBUTION WIDTH 16.6 % (11.5-14.5); WHITE BLOOD COUNT 9.7 X10'3 (4.5-11.0)
[2018-01-09 05:23] LABS: INR 1.1 INR; PROTHROMBIN TIME 11.2 SECONDS (9.0-12.0)
[2018-01-09 05:53] LABS: ALANINE AMINOTRANSFERASE 19 U/L (12-78); ALBUMIN 3.1 G/DL (3.4-5.0); ALBUMIN/GLOBULIN RATIO 0.8 (1.1-1.5); ALKALINE PHOSPHATASE 77 IU/L (46-116); ANION GAP 11 (8-16); ASPARTATE AMINO TRANSFERASE 16 U/L (10-37); BILIRUBIN,TOTAL 0.7 MG/DL (0.1-1.0); BLOOD UREA NITROGEN 24 MG/DL (7-18); BUN/CREATININE RATIO 31.6 (5.4-32.0); CALCIUM 8.7 MG/DL (8.5-10.1); CHLORIDE 101 MMOL/L (99-107); CREATININE 0.76 MG/DL (0.60-1.10); GLUCOSE 83 MG/DL (70-104); POTASSIUM 3.9 MMOL/L (3.5-5.1); SODIUM 137 MMOL/L (135-145); TOTAL CARBON DIOXIDE 24.7 MMOL/L (24-32); TOTAL PROTEIN 7.1 G/DL (6.4-8.2); eGFR > 90 ML/MIN
[2018-01-09 07:07] VITALS: BP 115/63
[2018-01-09] MEDS: lactobacillus rhamnosus 10,000 MMU CELLS/CAPSULE PO SCH ×2 (07:58→21:28)
[2018-01-09] MEDS: heparin, porcine 5000 units/ml vial SQ SCH ×2 (07:58→21:29)
[2018-01-09] MEDS: venlafaxine XR 75mg capsule (Q24H) PO SCH (07:58)
[2018-01-09] MEDS: cyclobenzaprine 10mg tablet PO SCH (07:59)
[2018-01-09] MEDS: levoTHYROXINE 100mcg tablet PO SCH (07:59)
[2018-01-09] MEDS: carvedilol 6.25mg tablet PO SCH ×2 (07:59→21:29)
[2018-01-09] MEDS: losartan 50mg tablet PO SCH (07:59)
[2018-01-09] MEDS: verapamil SR 120mg (sust. release) tab PO SCH ×2 (08:00→21:28)
[2018-01-09] MEDS: vitamin D (cholecalciferol) 1,000 unit tablet PO SCH (08:00)
[2018-01-09] MEDS: CefTRIAXone 2gm/D5W 50ml 50 ML IV SCH (08:00)
[2018-01-09 11:00] VITALS: BP 117/64
[2018-01-09 15:00] VITALS: BP 104/62
[2018-01-09] MEDS ORDERED: warfarin 7.5mg tablet PO ONE (21:00)
[2018-01-10 04:19] VITALS: BP 90/52
[2018-01-10 05:16] LABS: INR 1.1 INR; PROTHROMBIN TIME 11.8 SECONDS (9.0-12.0)
[2018-01-10 06:59] VITALS: BP 118/60
[2018-01-10] MEDS: vitamin D (cholecalciferol) 1,000 unit tablet PO SCH (07:49)
[2018-01-10] MEDS: losartan 50mg tablet PO SCH (07:49)
[2018-01-10] MEDS: lactobacillus rhamnosus 10,000 MMU CELLS/CAPSULE PO SCH (07:49)
[2018-01-10] MEDS: cyclobenzaprine 10mg tablet PO SCH (07:49)
[2018-01-10] MEDS: carvedilol 6.25mg tablet PO SCH (07:49)
[2018-01-10] MEDS: levoTHYROXINE 100mcg tablet PO SCH (07:49)
[2018-01-10] MEDS: venlafaxine XR 75mg capsule (Q24H) PO SCH (07:49)
[2018-01-10] MEDS: verapamil SR 120mg (sust. release) tab PO SCH (07:49)
[2018-01-10] MEDS: CefTRIAXone 2gm/D5W 50ml 50 ML IV SCH (07:49)
[2018-01-10] MEDS: heparin, porcine 5000 units/ml vial SQ SCH (07:49)
[2018-01-10] MEDS ORDERED: LEVO750T46 PO (11:26)
[2018-01-10] MEDS ORDERED: LOSA25TA96 PO (11:26)
[2018-01-10] MEDS ORDERED: CARV6.253 PO (11:26)
[2018-01-10] MEDS ORDERED: LEVO100T9 PO (11:26)
[2018-01-10 12:48] VITALS: BP 106/61
[2018-01-10] MEDS ORDERED: warfarin 10mg tablet PO ONE (21:00)
== END 2018-01-10 14:23 | DRG 872 ==
LOC: ER 10:20 → ED HOLD 13:29 → PCU 3S 16:05
PROVIDERS: ADMIT Family Medicine; ATTEND Family Medicine
DX: A41.9 Sepsis, unspecified organism (principal); I48.2 Chronic atrial fibrillation; N39.0 Urinary tract infection, site not specified; I48.92 Unspecified atrial flutter; E03.9 Hypothyroidism, unspecified; E78.00 Pure hypercholesterolemia, unspecified; F41.1 Generalized anxiety disorder; I10 Essential (primary) hypertension; G89.29 Other chronic pain; M54.9 Dorsalgia, unspecified; Z79.899 Other long term (current) drug therapy; Z79.01 Long term (current) use of anticoagulants; Z88.2 Allergy status to sulfonamides; Z88.0 Allergy status to penicillin
CPT/HCPCS: 36415; 71045; 80053; 80162; 81001; 83605; 83735; 83880; 84145; 84443; 84484; 85025; 85610; 85730; 87040; 87070; 87088; 93005; 93971; 96365; 96366; 96368; 96375; 97116; 97161; 97530; 99285; J0696; J1160; J1644; J1956; J2405; J3490; J7030

== ENCOUNTER 2019-09-25 08:13 | Emergency (ER) | payer MEDICARE ==
[~2019-09-25] VITALS: Ht 180.3 cm; Wt 90.9 kg
[~2019-09-25 08:13] MED LIST changes: +CARV6.253 PO; -CIPR-230 PO; -DIGO125T5 PO; +LEVO100T9 PO; -SYN0.088T PO
[2019-09-25] MEDS ORDERED: acetaminophen 325mg tablet PO ONE (09:10)
[2019-09-25 09:38] VITALS: BP 149/82
[2019-09-25] MEDS ORDERED: IBUP-1985 PO (09:44)
[2019-09-25] MEDS ORDERED: ketorolac tromethamine 15mg/ml inj. IM ONE (09:55)
[2019-09-25] MEDS ORDERED: LIDO700A32 TP (09:55)
[2019-09-25] MEDS ORDERED: ketorolac tromethamine 15mg/ml inj. IV ONE (09:55)
== END 2019-09-25 11:29 | disposition home or self-care (01) ==
LOC: ER 08:13
DX: M25.512 Pain in left shoulder (principal); M54.6 Pain in thoracic spine; I48.91 Unspecified atrial fibrillation; E78.00 Pure hypercholesterolemia, unspecified; I10 Essential (primary) hypertension; J32.2 Chronic ethmoidal sinusitis; G89.29 Other chronic pain; Z86.14 Personal history of Methicillin resistant Staphylococcus aureus infection; Z98.890 Other specified postprocedural states; Z88.2 Allergy status to sulfonamides; Z88.0 Allergy status to penicillin; Z79.01 Long term (current) use of anticoagulants; Z79.899 Other long term (current) drug therapy; W18.39XA Other fall on same level, initial encounter; Y93.89 Activity, other specified; Y92.89 Other specified places as the place of occurrence of the external cause; Y99.8 Other external cause status
CPT/HCPCS: 20552; 70450; 71045; 72125; 93005; 96372; 99284; J1885

== ENCOUNTER 2020-06-14 15:48 | Emergency (ER) | payer MEDICARE ==
[~2020-06-14] VITALS: Ht 180.3 cm; Wt 90.0 kg
[~2020-06-14 15:48] MED LIST changes: +IBUP-1985 PO; +LIDO700A32 TP
[2020-06-14] MEDS ORDERED: ondansetron 4mg rapidly disintigrating tab PO ONE (16:20)
[2020-06-14] MEDS ORDERED: morphine 4 MG/ML inj SYRINge IM ONE (16:20)
[2020-06-14 18:15] VITALS: BP 157/92
== END 2020-06-14 18:17 | disposition home or self-care (01) ==
LOC: ER 15:49
DX: G89.29 Other chronic pain (principal); M54.5 Low back pain; I48.91 Unspecified atrial fibrillation; E78.00 Pure hypercholesterolemia, unspecified; I10 Essential (primary) hypertension; Z86.14 Personal history of Methicillin resistant Staphylococcus aureus infection; Z98.890 Other specified postprocedural states; Z88.0 Allergy status to penicillin; Z88.2 Allergy status to sulfonamides; Z79.01 Long term (current) use of anticoagulants; Z79.899 Other long term (current) drug therapy; W19.XXXA Unspecified fall, initial encounter; Y93.89 Activity, other specified; Y92.89 Other specified places as the place of occurrence of the external cause; Y99.8 Other external cause status
CPT/HCPCS: 72128; 72131; 96372; 99284; J2270; 99285

== ENCOUNTER 2020-06-22 13:23 | Emergency (ER) | payer MEDICARE ==
[~2020-06-22] VITALS: Ht 180.3 cm; Wt 88.6 kg
[2020-06-22] MEDS ORDERED: normal saline 1000ML IV soln IV ONE (14:10)
[2020-06-22] MEDS ORDERED: CefTRIAXone 2gm/D5W 50ml 50 ML IV ONE (14:10)
[2020-06-22 14:43] LABS: BASOPHILS % (AUTO) 0.5 % (0-1); EOSINOPHILS # (AUTO) 0.2 X10'3 (0-0.9); EOSINOPHILS % (AUTO) 2.5 % (0-6); HEMATOCRIT 41.7 % (42.0-52.0); HEMOGLOBIN 13.9 g/dl (14.0-17.9); LYMPHOCYTES # (AUTO) 1.4 X10'3 (1.1-4.8); LYMPHOCYTES % (AUTO) 20.4 % (21-51); MEAN CORPUSCULAR HEMOGLOBIN 31.1 PG (27.0-31.0); MEAN CORPUSCULAR HGB CONC 33.3 g/dL (33.0-36.5); MEAN CORPUSCULAR VOLUME 93.6 FL (78-98); MEAN PLATELET VOLUME 8.1 FL (7.4-10.4); MONOCYTES # (AUTO) 0.7 X10'3 (0-0.9); MONOCYTES % (AUTO) 10.4 % (2-12); NEUTROPHILS # (AUTO) 4.4 X10'3 (1.8-7.7); NEUTROPHILS % (AUTO) 66.2 % (42-75); PLATELET COUNT 272 X10'3 (140-440); RED BLOOD COUNT 4.45 X10'6 (4.70-6.10); RED CELL DISTRIBUTION WIDTH 14.8 % (11.5-14.5); WHITE BLOOD COUNT 6.7 X10'3 (4.5-11.0)
[2020-06-22 15:03] LABS: ALANINE AMINOTRANSFERASE 28 U/L (12-78); ALBUMIN 3.4 G/DL (3.4-5.0); ALBUMIN/GLOBULIN RATIO 0.7 (1.1-1.5); ALKALINE PHOSPHATASE 118 IU/L (46-116); ANION GAP 6 (8-16); ASPARTATE AMINO TRANSFERASE 23 U/L (10-37); BILIRUBIN,TOTAL 0.8 MG/DL (0.1-1.0); BLOOD UREA NITROGEN 18 MG/DL (7-18); BUN/CREATININE RATIO 22.2 (5.4-32.0); CALCIUM 8.9 MG/DL (8.5-10.1); CHLORIDE 100 MMOL/L (99-107); CREATININE 0.81 MG/DL (0.60-1.10); GLUCOSE 84 MG/DL (70-104); POTASSIUM 4.1 MMOL/L (3.5-5.1); SODIUM 135 MMOL/L (135-145); TOTAL CARBON DIOXIDE 29.4 MMOL/L (24-32); TOTAL PROTEIN 8.4 G/DL (6.4-8.2); eGFR > 90 ML/MIN
[2020-06-22 15:11] LABS: MAGNESIUM 1.8 MG/DL (1.5-2.4)
[2020-06-22] MEDS ORDERED: metoprolol tartrate 1mg/ml inj IV ONE (15:20)
[2020-06-22] MEDS ORDERED: diltiazem 5mg/ml 5ml inj. IV ONE (16:30)
[2020-06-22 16:47] LABS: CLARITY,URINE CLEAR (Clear); COLOR,URINE YELLOW (Yellow); GLUCOSE, URINE NEGATIVE (Neg); KETONES,URINE TRACE mg/dl (Neg); LEUKOCYTE ESTERASE ,URINE NEGATIVE (Neg); NITRITES, URINE NEGATIVE (Neg); OCCULT BLOOD,URINE TRACE-INTACT (Neg); PROTEIN,URINE 100 mg/dl (Neg); UROBILINOGEN,URINE 0.2 E.U/dL (0.2-1.0)
[2020-06-22 16:48] LABS: UA COLLECTION TYPE STRAIGHT CATH
[2020-06-22 16:51] LABS: URINE AMPHETAMINE SCREEN NEGATIVE (Neg); URINE BARBITUATE SCREEN NEGATIVE (Neg); URINE BENZODIAZEPINES SCREEN NEGATIVE (Neg); URINE CANNABINOID SCREEN NEGATIVE (Neg); URINE COCAINE SCREEN NEGATIVE (Neg); URINE METHADONE SCREEN NEGATIVE (Neg); URINE OPIATE SCREEN NEGATIVE (Neg); URINE PHENCYCLIDINE SCREEN NEGATIVE (Neg)
[2020-06-22 16:53] LABS: BACTERIA,URINE NONE SEEN /HPF (Neg); MUCUS STRANDS NONE SEEN /LPF (Neg); RBC,URINE NONE SEEN /HPF (0-2); SQUAMOUS EPITHELIAL CELL,UR FEW /LPF (FEW); WBC,URINE NONE SEEN /HPF (0-4)
[2020-06-22] MEDS ORDERED: acetaminophen 325mg tablet PO ONE (17:15)
[2020-06-22] MEDS ORDERED: docusate sod 100mg capsule PO ONE (17:25)
[2020-06-22 21:28] LABS: PARTIAL THROMBOPLASTIN TIME 55 SECONDS (22-32)
[2020-06-23 00:54] VITALS: BP 139/83
== END 2020-06-23 01:15 | disposition short-term general hospital (02) ==
LOC: ER 13:23
DX: S32.049A Unspecified fracture of fourth lumbar vertebra, initial encounter for closed fracture (principal); G83.4 Cauda equina syndrome; R53.1 Weakness; I48.91 Unspecified atrial fibrillation; E78.00 Pure hypercholesterolemia, unspecified; I10 Essential (primary) hypertension; G89.29 Other chronic pain; Z86.14 Personal history of Methicillin resistant Staphylococcus aureus infection; Z88.2 Allergy status to sulfonamides; Z88.0 Allergy status to penicillin; Z79.01 Long term (current) use of anticoagulants; Z79.899 Other long term (current) drug therapy; X58.XXXA Exposure to other specified factors, initial encounter; Y93.89 Activity, other specified; Y92.89 Other specified places as the place of occurrence of the external cause; Y99.8 Other external cause status
CPT/HCPCS: 36415; 71045; 72146; 72148; 80053; 80305; 81001; 83605; 83735; 83880; 84145; 84484; 85025; 85610; 85730; 87040; 87635; 93005; 96365; 96375; 99285; C9803; J0696; J7030; 96366; J3490

== ENCOUNTER 2020-12-05 13:27 | Emergency (ER) | payer MEDICARE ==
[~2020-12-05] VITALS: Ht 180.3 cm; Wt 84.1 kg
[2020-12-05 15:10] LABS: BASOPHILS % (AUTO) 0.3 % (0-1); EOSINOPHILS # (AUTO) 0.1 X10'3 (0-0.9); EOSINOPHILS % (AUTO) 1.5 % (0-6); HEMATOCRIT 41.5 % (42.0-52.0); HEMOGLOBIN 13.8 g/dl (14.0-17.9); LYMPHOCYTES # (AUTO) 1.8 X10'3 (1.1-4.8); LYMPHOCYTES % (AUTO) 23.5 % (21-51); MEAN CORPUSCULAR HEMOGLOBIN 30.7 PG (27.0-31.0); MEAN CORPUSCULAR HGB CONC 33.1 g/dL (33.0-36.5); MEAN CORPUSCULAR VOLUME 92.6 FL (78-98); MEAN PLATELET VOLUME 7.7 FL (7.4-10.4); MONOCYTES # (AUTO) 0.8 X10'3 (0-0.9); MONOCYTES % (AUTO) 11.2 % (2-12); NEUTROPHILS # (AUTO) 4.8 X10'3 (1.8-7.7); NEUTROPHILS % (AUTO) 63.5 % (42-75); PLATELET COUNT 255 X10'3 (140-440); RED BLOOD COUNT 4.48 X10'6 (4.70-6.10); RED CELL DISTRIBUTION WIDTH 14.7 % (11.5-14.5); WHITE BLOOD COUNT 7.5 X10'3 (4.5-11.0)
--- NOTE | 2020-12-05 15:17 | NUR ---
Upon cleaning the pt up, the stool that was found on the pt was formed and soft, not diarrhea.
[2020-12-05] MEDS ORDERED: metoprolol tartrate 1mg/ml inj IV ONE (15:20)
--- NOTE | 2020-12-05 15:24 | NUR ---
Pt has a urinal and is obtaining a urine sample.
[2020-12-05 15:34] LABS: ALANINE AMINOTRANSFERASE 22 U/L (12-78); ALBUMIN 3.1 G/DL (3.4-5.0); ALBUMIN/GLOBULIN RATIO 0.6 (1.1-1.5); ALKALINE PHOSPHATASE 121 IU/L (46-116); AMYLASE 34 U/L (25-115); ANION GAP 7 (8-16); ASPARTATE AMINO TRANSFERASE 21 U/L (10-37); BILIRUBIN,TOTAL 0.7 MG/DL (0.1-1.0); BLOOD UREA NITROGEN 15 MG/DL (7-18); CALCIUM 9.1 MG/DL (8.5-10.1); CHLORIDE 99 MMOL/L (99-107); CREATININE 0.79 MG/DL (0.60-1.10); GLUCOSE 86 MG/DL (70-104); LIPASE 150 U/L (73-393); POTASSIUM 4.3 MMOL/L (3.5-5.1); SODIUM 133 MMOL/L (135-145); TOTAL CARBON DIOXIDE 27.3 MMOL/L (24-32); eGFR > 90 ML/MIN
[2020-12-05 15:50] LABS: CLARITY,URINE CLEAR (Clear); COLOR,URINE YELLOW (Yellow); GLUCOSE, URINE NEGATIVE (Neg); KETONES,URINE NEGATIVE (Neg); LEUKOCYTE ESTERASE ,URINE NEGATIVE (Neg); NITRITES, URINE NEGATIVE (Neg); OCCULT BLOOD,URINE TRACE-INTACT (Neg); PROTEIN,URINE 100 mg/dl (Neg); UROBILINOGEN,URINE 0.2 E.U/dL (0.2-1.0)
[2020-12-05 15:53] LABS: UA COLLECTION TYPE NON-SPECIFIED
[2020-12-05 16:11] LABS: MUCUS STRANDS MODERATE /LPF (Neg)
[2020-12-05 16:12] LABS: SQUAMOUS EPITHELIAL CELL,UR FEW /LPF (FEW)
[2020-12-05 16:13] LABS: BACTERIA,URINE FEW /HPF (Neg)
[2020-12-05] MEDS ORDERED: CEPH-585 PO (16:33)
[2020-12-05] MEDS ORDERED: cephalexin 250mg capsule PO ONE (16:35)
[2020-12-05 17:46] VITALS: BP 168/91
== END 2020-12-05 17:55 | disposition home or self-care (01) ==
LOC: ER 13:28
DX: N39.0 Urinary tract infection, site not specified (principal); R19.7 Diarrhea, unspecified; R62.7 Adult failure to thrive; E78.00 Pure hypercholesterolemia, unspecified; I10 Essential (primary) hypertension; G89.29 Other chronic pain; I48.91 Unspecified atrial fibrillation; Z86.14 Personal history of Methicillin resistant Staphylococcus aureus infection; Z98.890 Other specified postprocedural states; Z88.2 Allergy status to sulfonamides; Z88.0 Allergy status to penicillin; Z79.899 Other long term (current) drug therapy
CPT/HCPCS: 36415; 80053; 81001; 82150; 83690; 85025; 85610; 87088; 96374; 99285; J3490